=== PATIENT | female | born 1965 | race Caucasian/White ===

== ENCOUNTER 2018-08-06 14:57 | Outpatient (CLI) | payer BC, SELFPAY ==
--- NOTE | 2018-08-06 15:33 | DI.RAD_ITS ---
SYMPTOMS/DIAGNOSIS: ACUTE MIDLINE LOW BACK PAIN WITHOUT SCIATICA, M54.5 LUMBAR SPINE: The vertebral bodies are well maintained in height. The alignment appears normal. There are small endplate osteophytes. The disc spaces are well maintained. Surgical clips are noted in the right upper quadrant. IMPRESSION: Mild degenerative changes.
== END 2018-08-06 15:17 ==
PROVIDERS: PCP Family Medicine; Visit Provider Family Medicine
DX: M54.5 Low back pain (principal); M25.78 Osteophyte, vertebrae
CPT/HCPCS: 72110

== ENCOUNTER 2018-08-14 00:53 | Outpatient (CLI) | payer BC, SELFPAY ==
--- NOTE | 2018-08-14 15:45 | DI.MAMMO_ITS ---
SYMPTOM/DIAGNOSIS: SCREENING, Z12.31 MAMMOGRAMS: Mammograms were interpreted according to the usual protocol including computer analysis with CAD system, tomosynthesis and C view imaging. The breasts are composed of heterogeneously radiodense fibroglandular tissue. There is no dominant mass. There are no suspicious calcifications and there has been no significant interval change when compared with prior images. SUMMARY: No evidence of malignancy, category 1. Yearly screening mammography is recommended. Breast density, category C. SA ASSESSMENT OF FINDINGS: Negative. Category 1. Patient will receive a letter notifying them of these results. Bi-RADS category C. The breasts are heterogeneously dense, which may obscure small masses.
== END 2018-08-14 01:13 ==
PROVIDERS: PCP Family Medicine; Visit Provider Family Medicine
DX: Z12.31 Encounter for screening mammogram for malignant neoplasm of breast (principal)
CPT/HCPCS: 77063; 77067

== ENCOUNTER 2018-09-19 11:49 | Outpatient (CLI) | payer BC, SELFPAY ==
[2018-09-19 12:59] LABS: HCT 42.1 % (36.0-46.0); HGB 13.9 g/dL (12.0-15.5); Mean Corpuscular Hemoglobin 28.9 pg (27.0-33.0); Mean Corpuscular Volume 87.5 fL (80-95); Mean Platelet Volume 10.7 fL (8.0-11.0); Platelet Count 230 x1000/uL (130-400); RBC 4.81 m/cumm (4.00-5.20); RBC Distribution Width 13.4 % (11.7-14.6); White Blood Cell Count 6.53 k/cumm (4.4-10.8)
[2018-09-19 13:22] LABS: Iron 79 ug/dL (50-175)
[2018-09-19 13:34] LABS: ALT 94 U/L (12-78); AST 71 U/L (15-37); Albumin 3.8 g/dL (3.4-5.0); Alkaline Phosphatase 82 U/L (46-116); Anion Gap 10.7 mmol/L (3-11); BUN 8 mg/dL (7-18); Bilirubin, Total 0.4 mg/dL (0.2-1.0); CO2 28.3 mmol/L (21.0-32.0); CREATININE 0.76 mg/dL (0.55-1.02); Calcium 9.6 mg/dL (8.5-10.1); Chloride 102 mmol/L (98-107); Cholesterol 195 mg/dL (50-200); Glucose 108 mg/dL (70-100); HDL Cholesterol 40 mg/dL (40-60); LDL CHOLESTEROL 122 mg/dL (<100); Potassium 4.2 mmol/L (3.5-5.1); Sodium 141 mmol/L (136-145); Total Protein 7.5 g/dL (6.4-8.2); Triglyceride 214 mg/dL (30-150)
[2018-09-19 13:44] LABS: Vitamin D 25 Total 24.5 ng/ml (30-100)
== END 2018-09-19 12:09 ==
PROVIDERS: PCP Family Medicine; Visit Provider Family Medicine
DX: E55.9 Vitamin D deficiency, unspecified (principal); E03.9 Hypothyroidism, unspecified; Z00.00 Encounter for general adult medical examination without abnormal findings; K76.0 Fatty (change of) liver, not elsewhere classified; D50.8 Other iron deficiency anemias
CPT/HCPCS: 36415; 80053; 80061; 82306; 83721; 85027; 83540; 84443

== ENCOUNTER 2018-09-30 14:58 | Outpatient (REF) | payer BC, SELFPAY ==
--- NOTE | 2018-09-30 13:45 | PAPFT_PTH ---
PATIENT: Jayla Aranda LOC: JSN U#:[id number] AGE/SX: 53/F ROOM: RE09/30/[address]: Aster Peter MD, DC : 1965 BED: DIS: 09/30/2018 SPEC #: [id number] RECD: 09/30/18 18:34 STATUS: GENESIS RERommel #: [id number] MOMO: 09/30/18 13:[address]: Aster Peter DEPT: [facility] Cytology RECD BY: Sarah Beth Singh Tissues: 1 - CX/ENDOCX FOR PAP SMEARS Procedures: PAP THIN PREP/UVM Screening HPV DNA PROBE Comments: [id number]
== END 2018-09-30 15:18 ==
LOC: LBN 14:58
PROVIDERS: PCP Family Medicine; Visit Provider Family Medicine
DX: Z12.4 Encounter for screening for malignant neoplasm of cervix (principal); Z11.51 Encounter for screening for human papillomavirus (HPV)
CPT/HCPCS: 88142; 87624

== ENCOUNTER 2018-12-29 12:35 | Emergency (ER) | payer BC, SELFPAY ==
[2018-12-29 12:38] VITALS: BP 130/58; PULSE 90; RESP 18; TEMP 37; O2SAT 98
--- NOTE | 2018-12-29 12:55 | W.ED.GENAD ---
Discharge Plan Disposition Patient Disposition: HOME Condition: Improving Discharge Details Chief Complaint: Orthopedic Clinical Impression: Closed fracture of left proximal humerus Primary Care Provider: Aster Peter ED Provider: Ranjan Mcdowell Home Meds and New Rx's Prescriptions: Continued lorazepam 0.5 mg tablet 0.5 mg PO BID PRN (Reason: anxiety) Qty: 50 RF: 3 thyroid (pork) [Embudo Thyroid] 60 mg tablet 60 mg PO DAILY Qty: 90 RF: 4 venlafaxine 75 mg capsule,extended release 24hr 75 mg PO DAILY Qty: 90 RF: 4 OPIOD CONTRACT RF: 0 RICKY 180 MG tablet 180 mg PO DAILY RF: 0 Chantix 0.5 MG tablet 1 mg PO BID Qty: 60 RF: 11 sumatriptan succinate [Imitrex] 50 mg tablet 50 mg PO DAILY MDD 1 PRN (Reason: migraine headache) Qty: 9 RF: 5 oxycodone 10 mg tablet 10 mg PO TID MDD 3 PRN (Reason: pain) Qty: 70 RF: 0 Discharge Instructions Instructions: Proximal Humerus Fracture (ED) Additional Instructions: We will refer you to the orthopedic clinic for follow-up and reexamination. Please call the clinic at [phone] for a follow-up appointment. Keep the arm in a sling. Apply ice to reduce discomfort. May use your previously prescribed oxycodone. You may also use Tylenol and/or ibuprofen as needed for discomfort. Medical Decision Making 53-year-old female with slip and fall last night at her home on ice with a direct blow to the lateral left upper extremity. Tender along the proximal humerus. Her exam is otherwise unremarkable. Referred for x-ray which indeed reveals Mildly comminuted and minimally displaced fracture of the surgical neck of the humerus including a fracture through the greater tuberosity. No neuro vascular compromise and distal motor exam is normal including wrist extension. She will be kept in a sling, ice, continue her previously prescribed oxycodone and NSAIDs for pain. We will refer her to orthopedics for followup . She understands return precautions. HPI General Mode of arrival: ambulatory. Date/Time Provider Initiated Documentation: 12/29/18 12:47. Limitations to Documentation: no limitations. Information obtained by: patient. History of Present Illness 53 year old F presents to the emergency department with the chief complaint of Left shoulder pain after slip and fall with direct blow last night, described as moderate, Quality is described as aching, dull and constant, and is localized to the left and upper extremity. Patient reports no radiation. Patient started experiencing this hour(s) and it has been constant. Rest improves symptom(s), Movement worsens symptoms . Patient notes no other symptoms.; denies chest pain, headaches, shortness of breath and syncope. Patient did receive the following treatments prior to arrival, other (Home prescribed oxycodone) Related Data Home Medications Medication Instructions Recorded Confirmed Opiod Contract 01/06/13 10/17/18 Ricky 180 mg PO DAILY tab-cap 07/07/14 12/29/18 Chantix 1 mg PO BID #60 tab-cap 06/11/18 12/29/18 sumatriptan 50 mg tablet 50 mg PO DAILY PRN #9 tab-cap MDD 1 08/02/18 12/29/18 lorazepam 0.5 mg tablet 0.5 mg PO BID PRN #50 tab 09/30/18 12/29/18 thyroid (pork) 60 mg tablet 60 mg PO DAILY #90 tab-cap 09/30/18 12/29/18 venlafaxine ER 75 mg 75 mg PO DAILY #90 cap 09/30/18 12/29/18 capsule,extended release 24 hr oxycodone 10 mg tablet 10 mg PO TID PRN #70 tab-cap MDD 3 11/25/18 12/29/18 Previous Rx's Medication Instructions Recorded Chantix 1 mg PO BID #60 tab-cap 06/11/18 sumatriptan 50 mg tablet 50 mg PO DAILY PRN #9 tab-cap MDD 1 08/02/18 lorazepam 0.5 mg tablet 0.5 mg PO BID PRN #50 tab 09/30/18 thyroid (pork) 60 mg tablet 60 mg PO DAILY #90 tab-cap 09/30/18 venlafaxine ER 75 mg 75 mg PO DAILY #90 cap 09/30/18 capsule,extended release 24 hr oxycodone 10 mg tablet 10 mg PO TID PRN #70 tab-cap MDD 3 11/25/18 Allergies Allergy/AdvReac Type Severity Reaction Status Date / Time amitriptyline AdvReac LOW Verified 12/29/18 12:44 SODIUM/WT. GAIN General Stated Complaint: Orthopedic TRACE: 4 Review of Systems Review of Systems Mild left knee pain. Denies loss of consciousness. No neck/back/chest discomfort. 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) Smoker (Chronic 08/20/08) Obstructive sleep apnea syndrome (Chronic 07/19/10) Non-alcoholic fatty liver disease (Chronic) Migraine (Chronic) Iron deficiency anemia (Chronic 03/14/13) Hypothyroidism (Chronic 12/23/09) Duodenogastric bile reflux (Chronic 08/08/16) Depressive disorder (Chronic) Anxiety (Chronic) Breast lump (Resolved) Chest pain (Resolved) Cholecystolithiasis (Resolved) Chronic GERD (Resolved) Chronic sinusitis (Resolved) Fracture of ankle (Resolved) Hyponatremia (Resolved) Knee pain (Resolved) Depression GERD (gastroesophageal reflux disease) Hypothyroidism Non-alcoholic fatty liver disease Obstructive sleep apnea Surgical History H/O section (Resolved) H/O esophagogastroduodenoscopy (Resolved) H/O surgical procedure (Resolved) History of liver biopsy (Resolved) S/P cholecystectomy (Resolved) ANKLE FX section Cholecystectomy (~12/2010) Colonoscopy - MAC (06/16/16) EGD - MAC (10/30/12) EGD - MAC (06/16/16) LIVER BIOPSY (05/29/07) SINUS REPAIR Family History Mother No problems noted. Father Diabetes Essential hypertension Hyperlipidemia Sister Essential hypertension Sister No problems noted. Sister Stroke Brother Heart disease Hyperlipidemia Brother Depression Alcohol abuse Maternal Grandfather No problems noted. Paternal Grandfather Heart disease Alcohol abuse Maternal Grandmother No problems noted. Paternal Grandmother No problems noted. Son No problems noted. Son No problems noted. Daughter No problems noted. Social History Smoking/Tobacco Use Status: Current every day Tobacco Type: cigarettes Second Hand Exposure: No Alcohol Intake: current Alcohol Intake frequency: other Alcohol type: beer Drug use: Never Substance use type: does not use Pets and animals: Yes Pets and animals: dog(s) Duration: decline to answer Frequency: decline to answer Sofiya/Zoroastrianism: No preference Special sofiya needs: No Do you feel safe at home: Yes Do you feel safe in your relationship?: Yes Exam Narrative Exam Narrative: GEN: awake, alert, oriented 3. Pleasant, well groomed, interactive. HEAD: Normocephalic, atraumatic ENT: Mucous membranes moist, oropharynx unremarkable, External ear exam unremarkable EYES: PERRL, EOMI NECK: Full ROM, no RENÉ, no menigismus CHEST/RESP: Nontender, clear to auscultation bilateral, no wheeze/rhonchi/rales CARDIOVASCULAR: RRR, no murmur, rub birgit. 2+ Rad pulse bilateral Back: Nontender ABDOMEN: Soft, nontender, no mass. +Bowel sounds EXT: Right upper extremity unremarkable. Left upper extremity with proximal humerus tenderness. Distal motor and sensory evaluation is normal, no edema, no rash. Mild ecchymosis left anterior knee without focal bony tenderness. No laxity. Neuro: Grossly normal neurologic exam, conversant, interactive. Psych: Speech fluent, thoughts congruent, affect normal Course Vital Signs Temperature 37.0 C 12/29/18 12:38 Pulse 90 12/29/18 12:38 Respiratory Rate 18 12/29/18 12:38 Blood Pressure 130/58 L 12/29/18 12:38 Pulse Oximetry 98 12/29/18 12:38 Temperature 37.0 C 12/29/18 12:38 Temperature Source Skin 12/29/18 12:38 Pulse 90 12/29/18 12:38 Respiratory Rate 18 12/29/18 12:38 Respiratory Effort 12/29/18 12:46 Blood Pressure 130/58 L 12/29/18 12:38 Blood Pressure Position Sitting 12/29/18 12:38 Pulse Oximetry 98 12/29/18 12:38 Oxygen Delivery Method Room Air 12/29/18 12:38 Oxygen Flow Rate 0 12/29/18 12:38 Pain Level 5 12/29/18 12:48
--- NOTE | 2018-12-29 12:58 | ED.GENADUL_ITS ---
Discharge Plan Disposition Patient Disposition: HOME Condition: Improving Discharge Details Chief Complaint: Orthopedic Clinical Impression: Closed fracture of left proximal humerus Primary Care Provider: Aster Peter ED Provider: Ranjan Mcdowell Home Meds and New Rx's Prescriptions: Continued lorazepam 0.5 mg tablet 0.5 mg PO BID PRN (Reason: anxiety) Qty: 50 RF: 3 thyroid (pork) [[place] Thyroid] 60 mg tablet 60 mg PO DAILY Qty: 90 RF: 4 venlafaxine 75 mg capsule,extended release 24hr 75 mg PO DAILY Qty: 90 RF: 4 OPIOD CONTRACT RF: 0 RICKY 180 MG tablet 180 mg PO DAILY RF: 0 Chantix 0.5 MG tablet 1 mg PO BID Qty: 60 RF: 11 sumatriptan succinate [Imitrex] 50 mg tablet 50 mg PO DAILY MDD 1 PRN (Reason: migraine headache) Qty: 9 RF: 5 oxycodone 10 mg tablet 10 mg PO TID MDD 3 PRN (Reason: pain) Qty: 70 RF: 0 Discharge Instructions Instructions: Proximal Humerus Fracture (ED) Additional Instructions: We will refer you to the orthopedic clinic for follow-up and reexamination. Please call the clinic at [phone] for a follow-up appointment. Keep the arm in a sling. Apply ice to reduce discomfort. May use your previously prescribed oxycodone. You may also use Tylenol and/or ibuprofen as needed for discomfort. Medical Decision Making 53-year-old female with slip and fall last night at her home on ice with a direct blow to the lateral left upper extremity. Tender along the proximal humerus. Her exam is otherwise unremarkable. Referred for x-ray which indeed reveals Mildly comminuted and minimally displaced fracture of the surgical neck of the humerus including a fracture through the greater tuberosity. No neuro vascular compromise and distal motor exam is normal including wrist extension. She will be kept in a sling, ice, continue her previously prescribed oxycodone and NSAIDs for pain. We will refer her to orthopedics for followup . She understands return precautions. HPI General Mode of arrival: ambulatory . Date/Time Provider Initiated Documentation: 12/29/18 12:47 . Limitations to Documentation: no limitations . Information obtained by: patient . History of Present Illness 53 year old F presents to the emergency department with the chief complaint of Left shoulder pain after slip and fall with direct blow last night, described as moderate, Quality is described as aching, dull and constant, and is localized to the left and upper extremity. Patient reports no radiation. Patient started experiencing this hour(s) and it has been constant. Rest improves symptom(s), Movement worsens symptoms . Patient notes no other symptoms.; denies chest pain, headaches, shortness of breath and syncope. Patient did receive the following treatments prior to arrival, other (Home prescribed oxycodone) Related Data Home Medications Medication Instructions Recorded Confirmed Opiod Contract 01/06/13 10/17/18 Ricky 180 mg PO DAILY tab-cap 07/07/14 12/29/18 Chantix 1 mg PO BID #60 tab-cap 06/11/18 12/29/18 sumatriptan 50 mg tablet 50 mg PO DAILY PRN #9 tab-cap MDD 1 08/02/18 12/29/18 lorazepam 0.5 mg tablet 0.5 mg PO BID PRN #50 tab 09/30/18 12/29/18 thyroid (pork) 60 mg tablet 60 mg PO DAILY #90 tab-cap 09/30/18 12/29/18 venlafaxine ER 75 mg 75 mg PO DAILY #90 cap 09/30/18 12/29/18 capsule,extended release 24 hr oxycodone 10 mg tablet 10 mg PO TID PRN #70 tab-cap MDD 3 11/25/18 12/29/18 Previous Rx's Medication Instructions Recorded Chantix 1 mg PO BID #60 tab-cap 06/11/18 sumatriptan 50 mg tablet 50 mg PO DAILY PRN #9 tab-cap MDD 1 08/02/18 lorazepam 0.5 mg tablet 0.5 mg PO BID PRN #50 tab 09/30/18 thyroid (pork) 60 mg tablet 60 mg PO DAILY #90 tab-cap 09/30/18 venlafaxine ER 75 mg 75 mg PO DAILY #90 cap 09/30/18 capsule,extended release 24 hr oxycodone 10 mg tablet 10 mg PO TID PRN #70 tab-cap MDD 3 11/25/18 Allergies Allergy/AdvReac Type Severity Reaction Status Date / Time amitriptyline AdvReac LOW Verified 12/29/18 12:44 SODIUM/WT. GAIN General Stated Complaint: Orthopedic TRACE: 4 Review of Systems Review of Systems Mild left knee pain. Denies loss of consciousness. No neck/back/chest discomfort. 8 systems reviewed and otherwise negative [facility] Medical History Vitamin D deficiency (Chronic 10/13/08) Temporomandibular ahogd-qijq-obmzhmbzhzv syndrome (Chronic) Stenosis of hepatic artery (Chronic) Smoker (Chronic 08/20/08) Obstructive sleep apnea syndrome (Chronic 07/19/10) Non-alcoholic fatty liver disease (Chronic) Migraine (Chronic) Iron deficiency anemia (Chronic 03/14/13) Hypothyroidism (Chronic 12/23/09) Duodenogastric bile reflux (Chronic 08/08/16) Depressive disorder (Chronic) Anxiety (Chronic) Breast lump (Resolved) Chest pain (Resolved) Cholecystolithiasis (Resolved) Chronic GERD (Resolved) Chronic sinusitis (Resolved) Fracture of ankle (Resolved) Hyponatremia (Resolved) Knee pain (Resolved) Depression GERD (gastroesophageal reflux disease) Hypothyroidism Non-alcoholic fatty liver disease Obstructive sleep apnea Surgical History H/O section (Resolved) H/O esophagogastroduodenoscopy (Resolved) H/O surgical procedure (Resolved) History of liver biopsy (Resolved) S/P cholecystectomy (Resolved) ANKLE FX section Cholecystectomy (~12/2010) Colonoscopy - MAC (06/16/16) EGD - MAC (10/30/12) EGD - MAC (06/16/16) LIVER BIOPSY (05/29/07) SINUS REPAIR Family History Mother No problems noted. Father Diabetes Essential hypertension Hyperlipidemia Sister Essential hypertension Sister No problems noted. Sister Stroke Brother Heart disease Hyperlipidemia Brother Depression Alcohol abuse Maternal Grandfather No problems noted. Paternal Grandfather Heart disease Alcohol abuse Maternal Grandmother No problems noted. Paternal Grandmother No problems noted. Son No problems noted. Son No problems noted. Daughter No problems noted. Social History Smoking/Tobacco Use Status: Current every day Tobacco Type: cigarettes Second Hand Exposure: No Alcohol Intake: current Alcohol Intake frequency: other Alcohol type: beer Drug use: Never Substance use type: does not use Pets and animals: Yes Pets and animals: dog(s) Duration: decline to answer Frequency: decline to answer Sofiya/Faith: No preference Special sofiya needs: No Do you feel safe at home: Yes Do you feel safe in your relationship?: Yes Exam Narrative Exam Narrative: GEN: awake, alert, oriented 3. Pleasant, well groomed, interactive. HEAD: Normocephalic, atraumatic ENT: Mucous membranes moist, oropharynx unremarkable, External ear exam unremarkable EYES: PERRL, EOMI NECK: Full ROM, no RENÉ, no menigismus CHEST/RESP: Nontender, clear to auscultation bilateral, no wheeze/rhonchi/rales CARDIOVASCULAR: RRR, no murmur, rub birgit. 2+ Rad pulse bilateral Back: Nontender ABDOMEN: Soft, nontender, no mass. +Bowel sounds EXT: Right upper extremity unremarkable. Left upper extremity with proximal humerus tenderness. Distal motor and sensory evaluation is normal, no edema, no rash. Mild ecchymosis left anterior knee without focal bony tenderness. No laxity. Neuro: Grossly normal neurologic exam, conversant, interactive. Psych: Speech fluent, thoughts congruent, affect normal Course Vital Signs Temperature 37.0 C 12/29/18 12:38 Pulse 90 12/29/18 12:38 Respiratory Rate 18 12/29/18 12:38 Blood Pressure 130/58 L 12/29/18 12:38 Pulse Oximetry 98 12/29/18 12:38 Temperature 37.0 C 12/29/18 12:38 Temperature Source Skin 12/29/18 12:38 Pulse 90 12/29/18 12:38 Respiratory Rate 18 12/29/18 12:38 Respiratory Effort 12/29/18 12:46 Blood Pressure 130/58 L 12/29/18 12:38 Blood Pressure Position Sitting 12/29/18 12:38 Pulse Oximetry 98 12/29/18 12:38 Oxygen Delivery Method Room Air 12/29/18 12:38 Oxygen Flow Rate 0 12/29/18 12:38 Pain Level 5 12/29/18 12:48
--- NOTE | 2018-12-29 13:10 | DI.RAD_ITS ---
SYMPTOM/DIAGNOSIS: LT HUMERAL PAIN, FELL LEFT SHOULDER: Three views. There is a comminuted fracture of the proximal humerus involving the surgical neck in the greater tuberosity. The fracture's fragments are mildly displaced. There is mild inferior subluxation of the humeral head relative to the glenoid. No other fracture or dislocation is seen. The soft tissues are unremarkable. IMPRESSION: Mildly comminuted fracture of the proximal left humerus as described.
--- NOTE | 2018-12-29 13:31 | DI.VRAD_ITS ---
EXAM: XR Left Shoulder, Complete, 2 or More Views EXAM DATE/TIME: 12/29/2018 12:55 PM CLINICAL HISTORY: 53 years old, female; Injury or trauma; Fall; Initial encounter; Blunt trauma (contusions or hematomas; Shoulder; Left; Injury date: 12/28/18; Injury details: Fell last night left shoulder pain. TECHNIQUE: XR Left shoulder, complete 2 or more views. COMPARISON: No relevant prior studies available. FINDINGS: Mildly comminuted and minimally displaced fracture of the surgical neck of the humerus including a fracture through the greater tuberosity. Glenohumeral joint is intact. There is some minimal subluxation of the humeral head inferiorly consistent with a joint effusion. No additional fractures. Soft tissues unremarkable. IMPRESSION: Mildly comminuted and minimally displaced fracture of the surgical neck of the humerus including a fracture through the greater tuberosity. Dictated and Authenticated by: Brandan Campbell MD. Ordering:MYRNA Woodruff MD
[2018-12-29] MEDS: Ibuprofen 800 MG TAB PO (13:52)
== END 2018-12-29 14:05 | disposition home or self-care (01) ==
PROVIDERS: Emergency Provider Emergency Medicine; PCP Family Medicine
DX: S42.292A Other displaced fracture of upper end of left humerus, initial encounter for closed fracture (principal); W00.0XXA Fall on same level due to ice and snow, initial encounter
CPT/HCPCS: 99283; 73030; L3650

== ENCOUNTER 2019-01-06 13:46 | Outpatient (CLI) | payer BC, SELFPAY ==
--- NOTE | 2019-01-06 13:35 | DI.RAD_ITS ---
SYMPTOMS/DIAGNOSIS: F/U LEFT PROXIMAL HUMERUS FX LEFT SHOULDER: Comparison is made with December,. There has been no change in the alignment of the humeral fracture. There is no change in the mild inferior subluxation of the humeral head with respect to the glenoid. No new abnormalities are seen.
== END 2019-01-06 14:06 ==
PROVIDERS: PCP Family Medicine; Visit Provider Student in an Organized Health Care Education/Training Program
DX: S42.292D Other displaced fracture of upper end of left humerus, subsequent encounter for fracture with routine healing (principal)
CPT/HCPCS: 73030

== ENCOUNTER 2019-01-15 15:06 | Outpatient (CLI) | payer BC, SELFPAY ==
--- NOTE | 2019-01-15 14:59 | DI.RAD_ITS ---
SYMPTOMS/DIAGNOSIS: LEFT HUMERAL FRACTURE LEFT SHOULDER: There has been no change in the alignment of a fracture involving the proximal humerus when compared with previous images. There has been some filling in of the fracture lines and there is nothing to suggest that healing is not progressing satisfactorily at the present time.
== END 2019-01-15 15:26 ==
PROVIDERS: PCP Family Medicine; Visit Provider Physician Assistant
DX: S42.292D Other displaced fracture of upper end of left humerus, subsequent encounter for fracture with routine healing (principal)
CPT/HCPCS: 73030

== ENCOUNTER 2019-01-29 15:02 | Outpatient (CLI) | payer BC, SELFPAY ==
--- NOTE | 2019-01-29 14:59 | DI.RAD_ITS ---
SYMPTOMS/DIAGNOSIS: F/U LEFT PROXIMAL HUMERUS FX LEFT SHOULDER: A proximal humeral fracture is unchanged in alignment when compared with the previous examinations.
== END 2019-01-29 15:22 ==
PROVIDERS: PCP Family Medicine; Visit Provider Student in an Organized Health Care Education/Training Program
DX: S42.232D 3-part fracture of surgical neck of left humerus, subsequent encounter for fracture with routine healing (principal)
CPT/HCPCS: 73030

== ENCOUNTER 2019-02-26 15:19 | Outpatient (CLI) | payer BC, SELFPAY ==
--- NOTE | 2019-02-26 15:17 | DI.RAD_ITS ---
SYMPTOM/DIAGNOSIS: F/U FX LEFT SHOULDER: Three views were obtained. The previously described fracture of the proximal humerus is again noted with no gross interval change in alignment in comparison with the examination of 01/29/19.
== END 2019-02-26 15:39 ==
PROVIDERS: PCP Family Medicine; Visit Provider Physician Assistant
DX: S42.232D 3-part fracture of surgical neck of left humerus, subsequent encounter for fracture with routine healing (principal)
CPT/HCPCS: 73030

== ENCOUNTER 2019-03-26 15:27 | Outpatient (CLI) | payer BC, SELFPAY ==
--- NOTE | 2019-03-26 15:35 | DI.RAD_ITS ---
SYMPTOM/DIAGNOSIS: F/U LEFT SHOULDER: A healing fracture of the proximal humerus was demonstrated with no interval change in alignment when compared with the previous examination.
== END 2019-03-26 15:47 ==
PROVIDERS: PCP Family Medicine; Visit Provider Student in an Organized Health Care Education/Training Program
DX: S42.232D 3-part fracture of surgical neck of left humerus, subsequent encounter for fracture with routine healing (principal)
CPT/HCPCS: 73030

== ENCOUNTER 2019-09-29 11:39 | Outpatient (CLI) | payer BC, SELFPAY ==
[2019-09-29 13:07] LABS: HCT 40.1 % (36.0-46.0); HGB 13.3 g/dL (12.0-15.5); Mean Corp. HGB Concentration 33.2 g/dL (32.0-36.0); Mean Corpuscular Hemoglobin 29.2 pg (27.0-33.0); Mean Corpuscular Volume 88.1 fL (80-95); Mean Platelet Volume 9.9 fL (8.0-11.0); Platelet Count 309 x1000/uL (130-400); RBC 4.55 m/cumm (4.00-5.20); White Blood Cell Count 7.66 k/cumm (4.4-10.8)
[2019-09-29 13:27] LABS: ALT 34 U/L (14-59); AST 24 U/L (15-37); Albumin 3.8 g/dL (3.4-5.0); Alkaline Phosphatase 94 U/L (46-116); Anion Gap 8.4 mmol/L (3-11); BUN 10 mg/dL (7-18); Bilirubin, Total 0.4 mg/dL (0.2-1.0); CO2 29.6 mmol/L (21.0-32.0); CREATININE 0.78 mg/dL (0.55-1.02); Calcium 9.4 mg/dL (8.5-10.1); Chloride 105 mmol/L (98-107); Glucose 108 mg/dL (74-106); Potassium 4.1 mmol/L (3.5-5.1); Sodium 143 mmol/L (136-145); TSH (W/Ref FT4) 1.12 uIU/mL (0.36-3.74); Total Protein 7.6 g/dL (6.4-8.2)
[2019-09-29 13:39] LABS: Hemoglobin A1C 5.6 % (4.5-6.2)
[2019-10-02 15:31] LABS: Calculated LDL 146 mg/dL; Cholesterol 239 mg/dL (<200); HDL Cholesterol 41 mg/dL (40-60); Triglyceride 260 mg/dL (<150)
[2019-10-02 16:20] LABS: Vitamin D 25 Total 41.9 ng/ml (30-100)
== END 2019-09-29 11:59 ==
PROVIDERS: PCP Family Medicine; Visit Provider Family Medicine
DX: Z00.00 Encounter for general adult medical examination without abnormal findings (principal); Z13.1 Encounter for screening for diabetes mellitus; Z13.29 Encounter for screening for other suspected endocrine disorder; Z13.0 Encounter for screening for diseases of the blood and blood-forming organs and certain disorders involving the immune mechanism; E55.9 Vitamin D deficiency, unspecified
CPT/HCPCS: 36415; 80053; 80061; 82306; 85027; 83036; 84443

== ENCOUNTER 2019-12-10 01:40 | Outpatient (CLI) | payer BC, SELFPAY ==
--- NOTE | 2019-12-10 15:45 | DI.MAMMO_ITS ---
EXAM: MAMMO SCREENING CLINICAL HISTORY: screening Z12.39 TECHNIQUE: Mammograms were interpreted according to the usual protocol including computer analysis w [employer] CAD system, tomosynthesis and C-view imaging. COMPARISON: 2009 through 2017 FINDINGS: The breasts are composed of heterogeneously dense fibroglandular densities, Breast Density category C . No suspicious masses or suspicious microcalcifications are seen. No skin thickening or abnormal axillary lymph nodes are seen. There has been no significant change from prior exams. IMPRESSION: BIRADS Category 1, negative mammogram. Yearly screening mammography is recommended. BREAST DENSITY: The mammogram demonstrates the patient's breast tissue is dense. Dense breast tissue is very common and is not abnormal but dense breast tissue can make it harder to find cancer on a ma mmogram. Also, dense breast tissue may increase breast cancer risk. This information about the result of the mammogram report was provided to the patient to raise their awareness. Use this report when y ou speak with the patient about their risks for breast cancer, which includes their family history. A t that time, you may recommend additional screening tests (Ultrasound or MRI) as they might be useful based on their risk. A negative radiographic report should not delay biopsy if a dominant or clinically suspicious mass is present. Up to ten percent of cancers are not identified on mammography. A negative report may reinforce clinical impression. Adenosis and dense breasts may obscure an underlying neoplasm. False positive reports average 6 to 10%.
== END 2019-12-10 02:00 ==
PROVIDERS: PCP Family Medicine; Visit Provider Family Medicine
DX: Z12.31 Encounter for screening mammogram for malignant neoplasm of breast (principal)
CPT/HCPCS: 77063; 77067

== ENCOUNTER 2020-07-09 16:28 | Outpatient (CLI) | payer BC, SELFPAY ==
[2020-07-09 17:23] LABS: Troponin I < 0.05 ng/mL (<0.06)
== END 2020-07-09 16:48 ==
PROVIDERS: PCP Family Medicine; Visit Provider Physician Assistant
DX: R07.9 Chest pain, unspecified (principal)
CPT/HCPCS: 36415; 84484

== ENCOUNTER 2020-10-26 02:11 | Outpatient (CLI) | payer BC, SELFPAY ==
[2020-10-26 12:56] LABS: Hemoglobin A1C 5.6 % (<5.7)
[2020-10-26 13:01] LABS: TSH (W/Ref FT4) 0.93 uIU/mL (0.36-3.74)
== END 2020-10-26 02:31 ==
PROVIDERS: PCP Family Medicine; Visit Provider Family Medicine
DX: Z00.00 Encounter for general adult medical examination without abnormal findings (principal); E11.9 Type 2 diabetes mellitus without complications
CPT/HCPCS: 36415; 83036; 84443

== ENCOUNTER 2021-03-22 13:50 | Outpatient (CLI) | payer BC, SELFPAY ==
--- NOTE | 2021-03-22 13:45 | RT.EKG_ITS ---
APPROVED REPORT Exam: Resting ECG Reason for Exam: chest pain Patient Location: O HR:76 bpm ECG Measurements Heart Rate 76 AXIS RI 146 P 59 QRSd 74 QRS 32 QT 383 T 65 QTc 430 Conclusion Sinus rhythm...normal P axis, V-rate 60- 99
== END 2021-03-22 13:51 | disposition home or self-care (01) ==
LOC: DI.CM 13:51
PROVIDERS: PCP Family Medicine; Visit Provider Nurse Practitioner
DX: R07.89 Other chest pain (principal)
CPT/HCPCS: 93010

== ENCOUNTER 2022-06-29 11:47 | Outpatient (CLI) | payer BC, SELFPAY ==
[2022-06-29 12:48] LABS: Hemoglobin A1C 5.7 % (<5.7)
[2022-06-29 12:57] LABS: Lab Add On Test DONE
[2022-06-29 13:07] LABS: ALT 37 U/L (14-59); AST 24 U/L (15-37); Albumin 3.7 g/dL (3.4-5.0); Alkaline Phosphatase 89 U/L (46-116); Anion Gap 9.6 mmol/L (3-11); BUN 10 mg/dL (7-18); Bilirubin, Total 0.3 mg/dL (0.2-1.0); CO2 27.4 mmol/L (21.0-32.0); CREATININE 0.8 mg/dL (0.55-1.02); Calcium 9.3 mg/dL (8.5-10.1); Chloride 103 mmol/L (98-107); Estimated GFR 85.35 (mL/min/1.73m2); Glucose 109 mg/dL (74-106); Sodium 140 mmol/L (136-145); TSH (W/Ref FT4) 0.98 uIU/mL (0.36-3.74); Total Protein 7.9 g/dL (6.4-8.2)
[2022-06-29 13:22] LABS: Calculated LDL 123 mg/dL (<100); Cholesterol 207 mg/dL (<200); HDL Cholesterol 43 mg/dL (40-60); Triglyceride 206 mg/dL (<150)
== END 2022-06-29 11:48 | disposition home or self-care (01) ==
LOC: LOS 11:48
PROVIDERS: PCP Family Medicine; Referring Provider Family Medicine; Visit Provider Family Medicine
DX: E03.9 Hypothyroidism, unspecified (principal); E11.9 Type 2 diabetes mellitus without complications; Z13.220 Encounter for screening for lipoid disorders
CPT/HCPCS: 80053; 80061; 83036; 84443

== ENCOUNTER 2023-04-09 11:36 | Outpatient (CLI) | payer BC, SELFPAY ==
[2023-04-09 13:11] LABS: Hemoglobin A1C 5.7 % (<5.7)
[2023-04-09 13:37] LABS: ALT 26 U/L (14-59); AST 19 U/L (15-37); Albumin 3.9 g/dL (3.4-5.0); Alkaline Phosphatase 84 U/L (46-116); Anion Gap 9.4 mmol/L (3-11); BUN 12 mg/dL (7-18); Bilirubin, Total 0.3 mg/dL (0.2-1.0); CO2 26.6 mmol/L (21.0-32.0); CREATININE 0.8 mg/dL (0.55-1.02); Calcium 9.5 mg/dL (8.5-10.1); Calculated LDL 129 mg/dL (<100); Chloride 106 mmol/L (98-107); Cholesterol 207 mg/dL (<200); Estimated GFR 84.82 (mL/min/1.73m2); Glucose 113 mg/dL (74-106); HDL Cholesterol 47 mg/dL (40-60); Potassium 4.1 mmol/L (3.5-5.1); Sodium 142 mmol/L (136-145); Total Protein 8.2 g/dL (6.4-8.2); Triglyceride 157 mg/dL (<150)
[2023-04-09 14:00] LABS: Vitamin D 25 Total 56.1 ng/mL (30-100)
== END 2023-04-09 11:37 | disposition home or self-care (01) ==
LOC: LOS 11:36
PROVIDERS: PCP Family Medicine; Visit Provider Family Medicine
DX: Z00.00 Encounter for general adult medical examination without abnormal findings (principal); E11.9 Type 2 diabetes mellitus without complications; E03.9 Hypothyroidism, unspecified; E55.9 Vitamin D deficiency, unspecified
CPT/HCPCS: 36415; 80053; 80061; 82306; 83036; 84443

== ENCOUNTER 2023-04-09 13:05 | Outpatient (REF) | payer BC, SELFPAY ==
--- NOTE | 2023-04-09 11:00 | PAPFT_PTH ---
PATIENT: Jayla Aranda LOC: JSN U#:[id number] AGE/SX: 58/F ROOM: RE04/09/[address]: Aster Peter MD, DC : 1965 BED: DIS: 04/09/2023 SPEC #: [id number] RECD: 04/09/23 13:23 STATUS: GENESIS RERommel #: [id number] MOMO: 04/09/23 11:[address]: Aster Peter [facility] Cytology RECD BY: Sarah Beth Singh Tissues: 1 - CX/ENDOCX FOR PAP SMEARS Procedures: PAP THIN PREP/UVM Screening HPV DNA PROBE Comments: [id number]
== END 2023-04-09 13:06 | disposition home or self-care (01) ==
LOC: LBN 13:05
PROVIDERS: PCP Family Medicine; Visit Provider Family Medicine
DX: Z12.4 Encounter for screening for malignant neoplasm of cervix (principal); Z11.51 Encounter for screening for human papillomavirus (HPV)
CPT/HCPCS: 88142; 87624

== ENCOUNTER 2023-04-12 02:12 | Outpatient (CLI) | payer BC, SELFPAY ==
--- NOTE | 2023-04-12 12:28 | DI.MAMMO_ITS ---
Exam(s) MAMMO SCREENING EXAM: MAMMO SCREENING CLINICAL HISTORY: screening,Z12.39 TECHNIQUE: Mammograms were interpreted according to the usual protocol including computer analysis w [employer] CAD system, tomosynthesis and C-view imaging. COMPARISON: 2013 and 2019 FINDINGS: The breasts are composed of scattered fibroglandular densities, Breast Density category B. No suspicious masses or suspicious microcalcifications are seen. No skin thickening or abnormal axillary lymph nodes are seen. There has been no significant change from prior exams. IMPRESSION: BI-RADS Category 1, Negative mammogram Yearly screening mammography is recommended. Breast Density - Category B, scattered fibroglandular densities. A negative radiographic report should not delay biopsy if a dominant or clinically suspicious mass is present. Up to ten percent of cancers are not identified on mammography. A negative report may reinforce clinical impression. Adenosis and dense breasts may obscure an underlying neoplasm. False positive reports average 6 to 10%. Patient will receive a letter notifying them of these results.
== END 2023-04-12 02:32 ==
LOC: DI 02:15
PROVIDERS: PCP Family Medicine; Visit Provider Family Medicine
DX: Z12.31 Encounter for screening mammogram for malignant neoplasm of breast (principal)
CPT/HCPCS: 77063; 77067